=== PATIENT | male | born 1945 | race Caucasian/White ===

== ENCOUNTER → 2021-12-12 | Day surgery (SDC) | payer MEDICARE ==
[~2021-12-12] VITALS: Ht 182.9 cm; Wt 105.4 kg
[~2021-12-12] MED LIST: ALLOPURINOL100 MG PO; AMIODARONE HCL200 MG PO; AMLODIPINE BESY10 MG PO; ASPIR 8181 MG PO; CALCIUM 600 +1 EAC3 PO; CARDURA4 MG PO; COZAAR100 MG PO; ELIQUIS5 MG PO; KLOR-CON M 1010 MEQ PO; LASIX40 MG PO; LIPITOR40 MG PO; METOPROLOL SUCC25 MG PO; SYNTHROID137 MCG PO; TAMSULOSIN HCL0.4 MG PO; TOPROL XL 25MG25 MG PO; ULORIC40 MG PO; VALSARTAN80 MG PO; XARELTO10 MG PO
[2021-12-12 09:07] LABS: HCT 25.8 % (42.0-52.0); HGB 8.6 g/dl (13.2-18.0); MCH 33.5 pg (25.0-31.0); MCHC 33.3 g/dL (32.0-36.0); MCV 100.4 fL (78.0-100.0); MPV 9.5 fL (6.0-9.5); RBC 2.57 M/uL (4.70-6.00); RDW 13.9 % (11.5-14.0); WBC 2.6 K/uL (4.0-10.5)
[2021-12-12 09:26] LABS: ALBUMIN 3.4 g/dL (3.4-5.0); BILIRUBIN - TOTAL 1.2 mg/dL (0.2-1.0); BUN/CREAT RATIO (CALC) 14.8 RATIO; CREATININE 2.16 mg/dL (0.67-1.17); GLOBULIN (CALCULATION) 3.1 g/dL; POTASSIUM 4.1 mmol/L (3.5-5.1); TOTAL PROTEIN 6.5 g/dL (6.4-8.2)
== END | disposition home or self-care (01) ==
LOC: FAS 08:10
PROVIDERS: Surgery
DX: K21.9 Gastro-esophageal reflux disease without esophagitis (principal); K29.50 Unspecified chronic gastritis without bleeding; D50.0 Iron deficiency anemia secondary to blood loss (chronic); I48.91 Unspecified atrial fibrillation; I25.10 Atherosclerotic heart disease of native coronary artery without angina pectoris; I12.9 Hypertensive chronic kidney disease with stage 1 through stage 4 chronic kidney disease, or unspecified chronic kidney disease; N18.30 Chronic kidney disease, stage 3 unspecified; E78.5 Hyperlipidemia, unspecified; G47.30 Sleep apnea, unspecified; M10.9 Gout, unspecified; E03.9 Hypothyroidism, unspecified; Z95.0 Presence of cardiac pacemaker; Z95.1 Presence of aortocoronary bypass graft; Z99.89 Dependence on other enabling machines and devices; Z79.01 Long term (current) use of anticoagulants; Z79.82 Long term (current) use of aspirin; Z79.899 Other long term (current) drug therapy; Z85.46 Personal history of malignant neoplasm of prostate; Z86.010 Personal history of colon polyps
CPT/HCPCS: 36415; 80053; J2704; J7120

== ENCOUNTER → 2022-08-27 | Day surgery (SDC) | payer MEDICARE ==
[~2022-08-27] VITALS: Ht 182.9 cm; Wt 113.6 kg
[~2022-08-27] MED LIST changes: +FIRMAGON80 MG SC; +PROLIA60 MG/1 ML SC; +VITAMIN B12
== END | disposition home or self-care (01) ==
LOC: FAS 08:15
DX: K62.89 Other specified diseases of anus and rectum (principal); K62.5 Hemorrhage of anus and rectum; D50.0 Iron deficiency anemia secondary to blood loss (chronic); I25.10 Atherosclerotic heart disease of native coronary artery without angina pectoris; I12.9 Hypertensive chronic kidney disease with stage 1 through stage 4 chronic kidney disease, or unspecified chronic kidney disease; N18.30 Chronic kidney disease, stage 3 unspecified; I48.91 Unspecified atrial fibrillation; Z85.46 Personal history of malignant neoplasm of prostate; Z87.891 Personal history of nicotine dependence; Z79.01 Long term (current) use of anticoagulants; Z79.82 Long term (current) use of aspirin
CPT/HCPCS: 93005; J2250; J2704; J7120